=== PATIENT | male | born 1985 | race Two or more races ===

== ENCOUNTER 2016-09-16 19:27 | Inpatient (IN) | payer OTHER ==
[~2016-09-16] VITALS: Ht 177.8 cm; Wt 94.1 kg
--- NOTE | 2016-09-16 20:04 | NUR ---
TO BED 2 AMBULATORY C/O RUQ ABDOMINAL PAIN X1 HR SCAFFOLDING HELPER. PT AAOX4 NO ACUTE DISTRESS NOTED, RESP EVEN AND UNLABORED. URINE SAMPLE COLLECTED AND SENT TO LAB. PENDING ER MD ALEJANDRE.
--- NOTE | 2016-09-16 20:15 | NUR ---
BLOOD DRAWN BY EARLY CHILDHOOD SPECIAL EDUCATOR.
[2016-09-16 20:19] LABS: BASOPHILS # (AUTO) 0.1 /CMM (0.0-0.2); BASOPHILS % (AUTO) 0.8 % (0.0-2.0); EOSINOPHILS # (AUTO) 0.3 /CMM (0.0-0.7); EOSINOPHILS % (AUTO) 3.1 % (0.0-6.0); HEMATOCRIT 43 % (39-51); HEMOGLOBIN 14.1 g/dL (13.5-17.5); LYMPHOCYTES # (AUTO) 1.4 /CMM (0.8-4.8); LYMPHOCYTES % (AUTO) 17.7 % (20.0-44.0); MEAN CORPUSCULAR HEMOGLOBIN 29 PG (26.0-33.0); MEAN CORPUSCULAR HGB CONC 33 g/dl (31.0-36.0); MEAN CORPUSCULAR VOLUME 89 fL (80-96); MONOCYTES # (AUTO) 0.6 /CMM (0.1-1.30); MONOCYTES % (AUTO) 7.8 % (2.0-12.0); NEUTROPHILS # (AUTO) 5.8 /CMM (1.8-8.9); NEUTROPHILS % (AUTO) 70.6 % (43.0-81.0); PLATELET COUNT (AUTO) 260 /CMM (150-450); RDW COEFFICIENT OF VARIATION 12.9 (11.5-15.0); RED BLOOD CELL COUNT(AUTO) 4.83 MIL/uL (4.5-6.0); WHITE BLOOD COUNT (AUTO) 8.2 K/uL (4.3-11.0)
[2016-09-16] MEDS ORDERED: ONDANSETRON HCL/PF 4 MG/2 ML VIAL IVP ONE (20:30)
[2016-09-16] MEDS ORDERED: MORPHINE SULFATE INJ 2 MG/ML DISP.SYRIN IV ONE (20:30)
[2016-09-16] MEDS ORDERED: MORPHINE SULFATE INJ 4 MG/ML DISP.SYRIN ONE (20:30)
[2016-09-16] MEDS ORDERED: IV SET PRIMARY 1 EA INFUS.SET MC ONE ×2 (20:30→22:26)
[2016-09-16] MEDS ORDERED: ONDANSETRON HCL/PF 4 MG/2 ML VIAL ONE (20:30)
[2016-09-16] MEDS ORDERED: IV NS 0.9% 1,000 ML BAG IV ONE (20:30)
[2016-09-16] MEDS ORDERED: IV NS 0.9% 1,000 ML ONE (20:30)
[2016-09-16 20:31] LABS: APPEARANCE,URINE Clear (CLEAR); BILIRUBIN,URINE Negative (NEGATIVE); BLOOD, URINE Trace-intact Ery/uL (NEGATIVE); COLOR,URINE Yellow (YELLOW); KETONES,URINE Negative (NEGATIVE); LEUKOCYTE ESTERASE ,URINE Negative (NEGATIVE); NITRITE, URINE Negative (NEGATIVE); PROTEIN,URINE 30 mg/dl (NEGATIVE); UGLUCOSE Negative (NEGATIVE)
[2016-09-16 20:37] LABS: CALCIUM, SERUM 9.4 mg/dL (8.5-10.1); CREATININE 1.2 mg/dL (0.6-1.3); POTASSIUM 4.2 mmol/L (3.5-5.1)
[2016-09-16 20:38] LABS: BACTERIA,URINE Rare /HPF (None Seen); RBC,URINE 0-2 /HPF (0-2); SQUAMOUS EPITHELIAL CELL,UR Few /HPF (None Seen); WBC,URINE 0-2 /HPF (0-3)
--- NOTE | 2016-09-16 20:40 | NUR ---
RN AT BEDSIDE TO MEDICATE PT.
--- NOTE | 2016-09-16 20:47 | NUR ---
ROSALINDA TECH AT BEDSIDE FOR GALLBLADDER ROSALINDA.
[2016-09-16 20:49] LABS: ALBUMIN 4.2 g/dL (3.4-5.0); BILIRUBIN,DIRECT 0.2 mg/dL (0.0-0.2); BILIRUBIN,TOTAL 0.6 mg/dL (0.2-1.0); TOTAL PROTEIN, SERUM 7.6 g/dL (6.4-8.2)
[2016-09-16] MEDS ORDERED: FAMOTIDINE/PF INJ 20 MG/2 ML VIAL IV ONE ×2 (21:53→22:00)
--- NOTE | 2016-09-16 22:09 | NUR ---
CALLED , DENTAL THERAPIST SURGEON, TRANSFERRED CALL TO [facility] YONI LAZO
[2016-09-16] MEDS ORDERED: PIPERACILLIN /TAZOBACTAM 3.375 G VIAL IV ONE (22:26)
[2016-09-16] MEDS ORDERED: PIPERACILLIN /TAZOBACTAM 3.375 G in IV D5W 50 ML IV ONE (22:30)
--- NOTE | 2016-09-16 22:33 | NUR ---
CALLED NURSING SUP. FOR MS BED
--- NOTE | 2016-09-16 23:29 | NUR ---
REPORT CALLED TO MS [facility]
[2016-09-16 23:30] VITALS: BP 110/60
--- NOTE | 2016-09-16 23:30 | NUR ---
RN NOTES RECEIVED PT FROM ER WITH DX. OF ACUTE CHOLELITHIASIS, A/OX4, GIRLFRIEND AT BEDSIDE, DENIES PAIN AT THIS TIME, ADMISSION INSTRUCTION WAS GIVEN, CALL LIGHT WITHIN REACH, SIDERAILS UPX2 CONTINUE TO MONITOR
[2016-09-16 23:45] VITALS: BP 110/60
[2016-09-16] MEDS: PIPERACILLIN /TAZOBACTAM 3.375 G in IV D5W 50 ML IV SCH (23:47)
--- NOTE | 2016-09-16 23:47 | NUR ---
RN NOTES ZOSYN 3.375IV WAS NOT GIVEN AT THIS TIME , PT . RECEIVED ZOSYN IN ER 2 HRS. AGO
[2016-09-17] MEDS ORDERED: MORPHINE SULFATE INJ 2 MG/ML DISP.SYRIN IV PRN
[2016-09-17] MEDS ORDERED: ONDANSETRON HCL/PF 4 MG/2 ML VIAL IVP PRN
[2016-09-17] MEDS ORDERED: PIPERACILLIN /TAZOBACTAM 3.375 G VIAL IV ONE (04:53)
[2016-09-17] MEDS ORDERED: IV D5W 50 ML IV ONE (04:54)
[2016-09-17] MEDS ORDERED: SECONDARY IV SET 1 EA INFUS.SET MC ONE ×2 (04:54→17:34)
[2016-09-17] MEDS ORDERED: IV SET PRIMARY PUMP SET 1 EA INFUS.SET MC ONE ×2 (05:10→16:21)
[2016-09-17] MEDS ORDERED: IV NS 0.9% 250 ML IV ONE (05:10)
[2016-09-17] MEDS: PIPERACILLIN /TAZOBACTAM 3.375 G in IV D5W 50 ML IV SCH ×2 (05:29→11:57)
--- NOTE | 2016-09-17 06:22 | NUR ---
RN NOTES AWAKE, DENIES PAIN, MORNING CARE RENDERED, PT NEEDS ATTENDED. ENDORSED TO DAYSHIFT NURSE FOR CONTINUITY OF CARE
[2016-09-17 07:14] LABS: BASOPHILS % (AUTO) 0.8 % (0.0-2.0); EOSINOPHILS # (AUTO) 0.2 /CMM (0.0-0.7); EOSINOPHILS % (AUTO) 3.7 % (0.0-6.0); HEMATOCRIT 39 % (39-51); HEMOGLOBIN 13.3 g/dL (13.5-17.5); LYMPHOCYTES # (AUTO) 1.3 /CMM (0.8-4.8); LYMPHOCYTES % (AUTO) 20.1 % (20.0-44.0); MEAN CORPUSCULAR HEMOGLOBIN 30 PG (26.0-33.0); MEAN CORPUSCULAR HGB CONC 34 g/dl (31.0-36.0); MEAN CORPUSCULAR VOLUME 88 fL (80-96); MONOCYTES # (AUTO) 0.5 /CMM (0.1-1.30); MONOCYTES % (AUTO) 8.2 % (2.0-12.0); NEUTROPHILS # (AUTO) 4.4 /CMM (1.8-8.9); NEUTROPHILS % (AUTO) 67.2 % (43.0-81.0); PLATELET COUNT (AUTO) 223 /CMM (150-450); RDW COEFFICIENT OF VARIATION 13.3 (11.5-15.0); WHITE BLOOD COUNT (AUTO) 6.6 K/uL (4.3-11.0)
[2016-09-17 07:32] LABS: ALBUMIN 3.4 g/dL (3.4-5.0); BILIRUBIN,TOTAL 0.5 mg/dL (0.2-1.0); CALCIUM, SERUM 8.7 mg/dL (8.5-10.1); MAGNESIUM 2.1 mg/dL (1.8-2.4); PHOSPHORUS 3.9 mg/dL (2.5-4.9); TOTAL PROTEIN, SERUM 6.7 g/dL (6.4-8.2)
[2016-09-17 07:35] LABS: THYROID STIMULATING HORMONE 1.154 uIU/mL (0.358-3.74)
--- NOTE | 2016-09-17 07:35 | NUR ---
MS RN OPENING NOTE PATIENT IS ALERT AND ORIENTED x4. NO PAIN AT THIS TIME. NO SOB OR DISTRESS NOTED. CALL LIGHT WITHIN REACH. SAFETY MEASURES IMPLEMENTED. IV INTACT AND PATENT NO REDNESS OR SWELLING NOTED. ABLE TO COMMUNICATE NEEDS. CURRENTLY NPO. WILL CONTINUE TO MONITOR
[2016-09-17 08:00] VITALS: BP 121/71
[2016-09-17] MEDS: PANTOPRAZOLE 40 MG VIAL IV SCH (08:49)
--- NOTE | 2016-09-17 10:31 | NUR ---
MS RN NOTE PATIENT IS GOING TO HAVE LAPAROSCOPIC CHOLECYSTECTOMY TODAY AT [address] BOOGIE.
--- NOTE | 2016-09-17 13:11 | NUR ---
MS RN NOTE PATIENT IS HEADING DOWN TO OR FOR LAPAROSCOPIC CHOLECYSTECTOMY WITH POSSIBLE OPEN PROCEDURE. PATIENT IS STABLE, VITALS ARE STABLE. PATIENT IS ABLE TO COMMUNICATE NEEDS. CONSENTS IN CHART.
[2016-09-17] MEDS ORDERED: ROCURONIUM BROMIDE 50 MG/5 ML ONE (13:42)
[2016-09-17] MEDS ORDERED: MIDAZOLAM HCL 2 MG/2ML VIAL ONE (13:42)
[2016-09-17] MEDS ORDERED: FENTANYL PF 100MCG/2ML AMPUL ONE (13:42)
[2016-09-17] MEDS ORDERED: IV LR 1000 ML 1,000 ML ONE (14:54)
[2016-09-17] MEDS ORDERED: HYDROMORPHONE 1 MG/1 ML DISP.SYRIN ONE (15:11)
[2016-09-17] MEDS ORDERED: MORPHINE SULFATE INJ 4 MG/ML DISP.SYRIN IV PRN (15:30)
[2016-09-17] MEDS ORDERED: IV D5/0.45 NACL 1,000 ML IV PRN (15:30)
[2016-09-17] MEDS ORDERED: ZOLPIDEM TARTRATE 5 MG TABLET PO PRN (15:30)
--- NOTE | 2016-09-17 15:30 | NUR ---
MS RN NOTE PATIENT IS BACK FROM SURGERY. PATIENT IS STABLE, VITALS ARE STABLE. PATIENT ABLE TO COMMUNICATE NEEDS. ORDERS NOTED AND CARRIED OUT. WILL CONTINUE TO MONITOR PATIENT
[2016-09-17] MEDS: MORPHINE SULFATE INJ 2 MG/ML DISP.SYRIN IV PRN ×3 (15:35→21:42)
[2016-09-17 16:00] VITALS: BP 110/60
[2016-09-17] MEDS: IV D5/0.45 NACL W/20 MEQ KCL 1L IV PRN ×2 (16:30)
[2016-09-17] MEDS: ANCEF 1 GM/50 ML D5W IV SCH ×2 (17:42)
--- NOTE | 2016-09-17 18:44 | NUR ---
MS RN CLOSING NOTE PATIENT IS ALERT AND ORIENTED x4. NO PAIN AT THIS TIME. NO SOB OR DISTRESS NOTED. CALL LIGHT WITHIN REACH AT ALL TIMES. ABLE TO COMMUNICATE NEEDS. IV INTACT AND PATENT NO REDNESS OR SWELLING NOTED. IV FLUIDS RUNNING AT THIS TIME AT 75 ML/HR. S/P LAP CHOLECYSTECTOMY. RESTING AT THIS TIME. WILL ENDORSE TO SIDE GUIDER
--- NOTE | 2016-09-17 19:40 | NUR ---
MS/RN NOTES RECEIVED PT. LYING IN BED. AWAKE, ALERT AND ORIENTED X4. BREATHING EVEN AND UNLABORED ON ROOM AIR. NO SOB OR RESPIRATORY DISTRESS NOTED. PT. IS STATUS POST LAP JOHN EARLIER TODAY. PT. STATES HE HAS MINIMAL PAIN IN HIS ABDOMEN BUT IT IS TOLERABLE AND DOES NOT NEED PAIN MEDICATION AT THIS TIME. EDUCATE PT. ON IMPORTANCE OF PAIN MANAGEMENT, PT. VERBALIZED UNDERSTANDING, WILL CONTINUE TO MONITOR PT. PAIN. PT. WITH LEFT AC 18 GAUGE PERIPHERAL IV PRESENT, PATENT AND INTACT ADMINISTERING TO PT. D5 1/2 NS WITH 20 MEQ KCL @ 75ML/HR. PT. GIRLFRIEND PRESENT AT BEDSIDE. BED IN LOWEST POSITION, SIDE RAILS UP X2, CALL LIGHT WITHIN REACH, WILL CONTINUE TO MONITOR.
[2016-09-17 20:00] VITALS: BP 115/70
[2016-09-18] MEDS ORDERED: MORPHINE SULFATE INJ 2 MG/ML DISP.SYRIN ONE (00:10)
[2016-09-18] MEDS: MORPHINE SULFATE INJ 2 MG/ML DISP.SYRIN IV PRN (00:19)
[2016-09-18] MEDS: ANCEF 1 GM/50 ML D5W IV SCH ×6 (02:45→17:28)
--- NOTE | 2016-09-18 06:35 | NUR ---
MS/RN NOTES PT. LYING IN BED RESTING. BREATHING EVEN AND UNLABORED ON ROOM AIR. NO SOB OR RESPIRATORY DISTRESS NOTED. NO COMPLAINTS OF PAIN NOTED AT THIS TIME. PT. WITH 4 ABDOMINAL POST OP SURGICAL DRESSINGS PRESENT, CLEAN DRY AND INTACT. PT. WITH LEFT AC 18 GAUGE PERIPHERAL IV PRESENT, PATENT AND INTACT ADMINISTERING TO PT. D5 1/2 NS WITH 20 MEQ KCL @ 75ML/HR. ALL PT. NEEDS MET. PT. GIRLFRIEND PRESENT AT BEDSIDE. BED IN LOWEST POSITION, SIDE RAILS UP X2, CALL LIGHT WITHIN REACH, WILL ENDORSE TO DAYSPRFT NURSE FOR CONTINUITY OF CARE.
--- NOTE | 2016-09-18 07:30 | NUR ---
MS RN NOTES RECEIVED REPORT WITH PATIENT A/OX4. PATIENT IS RESTING COMFORTABLY IN BED. NO S/S OF DISTRESS OR SOB NOTED. IV IS PATENT AND INTACT. FAMILY MEMBER AT BEDSIDE. CALL LIGHT IS WITHIN REACH. BED IS IN THE LOWEST, LOCKED POSITION. WILL CONTINUE TO MONITOR THROUGHOUT SHIFT.
[2016-09-18 08:00] VITALS: BP 122/71
[2016-09-18] MEDS: MORPHINE SULFATE INJ 4 MG/ML DISP.SYRIN IV PRN ×5 (09:16→22:45)
[2016-09-18] MEDS: IV D5/0.45 NACL W/20 MEQ KCL 1L IV PRN ×2 (09:22)
[2016-09-18] MEDS: PANTOPRAZOLE 40 MG VIAL IV SCH (09:23)
--- NOTE | 2016-09-18 11:45 | NUR ---
MS RN NOTES PATIENT COMPLAINING OF SEVERE RIGHT SHOULDER PAIN. MD MADE AWARE. WAITING FOR ORDERS. WILL CONTINUE TO MONITOR.
[2016-09-18] MEDS: oxyCODONE/APAP (5/325 MG) 1 UDTAB TABLET PO PRN (12:23)
[2016-09-18] MEDS: LIDOCAINE 5% (PATCH) 1 EA PATCH TP SCH (12:23)
[2016-09-18 16:00] VITALS: BP 112/83
--- NOTE | 2016-09-18 18:49 | NUR ---
MS RN NOTES PATIENT IS A/OX4. FAMILY MEMBER AT BEDSIDE. NO S/S OF SOB OR ACUTE DISTRESS NOTED. IV IS PATENT AND INTACT. ALL PATIENT NEEDS HAVE BEEN MET. PAIN HAS BEEN MANAGED. BED IS IN THE LOWEST, LOCKED POSITION. CALL LIGHT IS WITHIN REACH. WILL ENDORSE CARE TO PM SHIFT.
--- NOTE | 2016-09-18 19:30 | NUR ---
MS RN OPENING NOTES: PATIENT IN BED, AOX4, ON ROOM AIR, BREATHING EVEN AND UNLABORED. APPEARS CALM AND IN NO DISTRESS, HOWEVER, STATES THAT HE HAS 7-8/10 PAIN OVER HIS ABDOMINAL INCISION SITES. PIV OVER LAC G 18 INTACT AND PATENT TO FLUSH. PROVIDED FOR COMFORT NAD SAFETY. WILL CONT TO MONITOR.
[2016-09-18 20:00] VITALS: BP 109/63
--- NOTE | 2016-09-18 22:47 | NUR ---
RN NOTES: PATIENT COMPLAINED OF SEVERE PAIN SCALED AT 10/10. ADMINISTERED MORPHINE 4 MG IV. WILL CONT TO MONITOR.
[2016-09-19 02:20] VITALS: BP 126/59
--- NOTE | 2016-09-19 02:20 | NUR ---
RN NOTES: PATIENT JUST WOKE UP, COMPLAINING OF SEVERE PAIN SCALED AT 10/10. ADMINISTERED MORPHINE 4 MG IV PRN. BP: 126/59, HR: 73. WILL CONT TO MONITOR.
[2016-09-19] MEDS: ANCEF 1 GM/50 ML D5W IV SCH ×4 (02:23→10:47)
[2016-09-19] MEDS: IV D5/0.45 NACL W/20 MEQ KCL 1L IV PRN ×2 (02:23)
[2016-09-19] MEDS: MORPHINE SULFATE INJ 4 MG/ML DISP.SYRIN IV PRN (02:24)
--- NOTE | 2016-09-19 06:55 | NUR ---
MS RN CLOSING NOTES: PT IN BED, AOX4, ON ROOM AIR, BREATHING EVEN AND UNLABORED. IN NO APPARENT DISTRESS. STATES THAT HE IS CONSTIPATED, PROVIDED PRUNE JUICE AND ADVISED PATIENT TO AMBULATE TOLERATED, PATIENT COMPLIANT. PIV OVER LAC G 18 INTACT NAD INFUSING WELL WITH D5 1/2 NS + 20 MEQS KCL RUNNING AT 75 ML/HR. PROVIDED FOR COMFORT AND SAFETY. DUE MEDS GIVEN. WILL ENDORSE TO AM RN FOR MICHELLE.
--- NOTE | 2016-09-19 07:30 | NUR ---
MS RN NOTES RECEIVED REPORT WITH PATIENT A/OX4. NO S/S OF SOB NOTED. PATIENT HAS LOWER ABDOMINAL AND RIGHT SHOULDER PAIN. PROVIDED PAIN MANAGEMENT USING PHARMACOLOGICAL AND NONPHARMACOLOGICAL MEASURES. ENCOURAGED PATIENT TO AMBULATE. IV IS PATENT AND INTACT. CALL LIGHT IS WITHIN REACH. BED IS IN THE LOWEST, LOCKED POSITION. FAMILY MEMBER AT BEDSIDE. WILL CONTINUE TO MONITOR THROUGHOUT SHIFT.
[2016-09-19] MEDS: oxyCODONE/APAP (5/325 MG) 1 UDTAB TABLET PO PRN (07:35)
[2016-09-19 08:10] VITALS: BP 111/62
[2016-09-19] MEDS: PANTOPRAZOLE 40 MG VIAL IV SCH (08:20)
[2016-09-19] MEDS: LIDOCAINE 5% (PATCH) 1 EA PATCH TP SCH (11:40)
--- NOTE | 2016-09-19 12:05 | NUR ---
MS RN NOTES PATIENT HAS BEEN DISCHARGED IN STABLE CONDITION. DISCHARGE EDUCATION HAS BEEN PROVIDED TO THE PATIENT. DISCHARGE PROTOCOL HAS BEEN FOLLOWED. PATIENT VERBALIZED UNDERSTANDING OF POST-OP LAPAROSCOPIC CHOLECYSTECTOMY CARE. IV AND ID BAND HAS BEEN REMOVED. MD AWARE OF ALL ABNORMAL LABS. PHOTO TAKEN OF ABDOMINAL INCISIONS AND PLACED IN CHART. ALL PATIENT NEEDS HAVE BEEN MET. PATIENT WAS ESCORTED DOWNSTAIRS. PATIENT LEFT WITH GIRLFRIEND IN PRIVATE CAR.
== END 2016-09-19 12:00 | disposition home or self-care (01) | DRG 263 ==
LOC: ER 19:28 → MED 23:21
PROVIDERS: ADMIT Nurse Practitioner Acute Care; ATTEND Nurse Practitioner Acute Care
PROC: 0FT44ZZ Resection of Gallbladder, Percutaneous Endoscopic Approach (ICD-10-PCS; principal; 2016-09-17 13:30)
DX: K80.00 Calculus of gallbladder with acute cholecystitis without obstruction (principal); N17.0 Acute kidney failure with tubular necrosis; E87.3 Alkalosis; R74.0 Nonspecific elevation of levels of transaminase and lactic acid dehydrogenase [LDH]; E86.9 Volume depletion, unspecified
CPT/HCPCS: 36415; 71010-TC; 76705-TC; 80048-TC; 80053-TC; 80061-TC; 80076-TC; 81000-TC; 83690-TC; 83735-TC; 84100-TC; 84443-TC; 85025-TC; 87081-TC; 88304-TC; 88305-TC; A4606; C9113; J0690; J1100; J1170; J1885; J2250; J2270; J2405; J2543; J2704; J2710; J3010; J3480; J3490; J7030; J7050; J7060; J7120; Z7610

== ENCOUNTER 2018-12-07 19:38 | Emergency (ER) | payer OTHER ==
[~2018-12-07] VITALS: Ht 177.8 cm; Wt 97.5 kg
[2018-12-07 19:40] VITALS: BP 154/80
[2018-12-07] MEDS ORDERED: KETOROLAC TROMETHAMINE INJ 60 MG/2 ML VIAL IM ONE (20:30)
[2018-12-07] MEDS ORDERED: BUPIVACAINE 0.5 % PF 150 MG/30 ML VIAL IJ ONE (20:30)
[2018-12-07] MEDS ORDERED: TRIAMCINOLONE ACETONIDE SUSP 40 MG/ML VIAL IM ONE (20:30)
[2018-12-07] MEDS ORDERED: ONDANSETRON 4 MG TAB.RAPDIS SL ONE (20:30)
[2018-12-07] MEDS ORDERED: MORPHINE SULFATE INJ 2 MG/ML DISP.SYRIN IM ONE (20:30)
[2018-12-07] MEDS ORDERED: KETOROLAC TROMETHAMINE INJ 30 MG/ML VIAL ONE (20:31)
[2018-12-07] MEDS ORDERED: BUPIVACAINE 0.5 % PF 150 MG/30 ML VIAL ONE (20:31)
[2018-12-07] MEDS ORDERED: ONDANSETRON 4 MG TAB.RAPDIS ONE (20:32)
[2018-12-07] MEDS ORDERED: MORPHINE SULFATE INJ 4 MG/ML DISP.SYRIN ONE (20:32)
== END 2018-12-07 21:04 | disposition home or self-care (01) ==
LOC: ER 19:39
DX: S33.5XXA Sprain of ligaments of lumbar spine, initial encounter (principal); X58.XXXA Exposure to other specified factors, initial encounter; Y93.89 Activity, other specified; Y92.89 Other specified places as the place of occurrence of the external cause; Y99.8 Other external cause status
CPT/HCPCS: 96372 ×2; 99283; J1885; J2270; J3301; J3490; Q0162

== ENCOUNTER 2019-11-25 20:24 | Emergency (ER) | payer OTHER ==
[~2019-11-25] VITALS: Ht 180.3 cm; Wt 90.7 kg
[2019-11-25 20:59] VITALS: BP 123/83
== END 2019-11-25 21:54 | disposition home or self-care (01) ==
LOC: ER 20:29
DX: H10.9 Unspecified conjunctivitis (principal)